=== PATIENT | male | born 1995 | race Caucasian/White ===

== ENCOUNTER 2017-12-26 02:50 | Emergency (ER) | payer OTHER ==
[2017-12-26] MEDS: HYDROCODONE/APAP (5/325) TAB PO (04:33)
[2017-12-26] MEDS: ONDANSETRON (ODT) 4 MG TAB ODT (04:33)
== END 2017-12-26 06:24 | disposition home or self-care (01) ==
LOC: FTE 02:50
DX: S00.03XA Contusion of scalp, initial encounter (principal); W01.198A Fall on same level from slipping, tripping and stumbling with subsequent striking against other object, initial encounter; Y92.9 Unspecified place or not applicable
CPT/HCPCS: 72040; 99283-25